=== PATIENT | female | born 1990 | race Caucasian/White ===

== ENCOUNTER → 2017-02-10 | Outpatient (CLI) | payer OTHER | LOC: RAD 13:35 | DX: M54.2 Cervicalgia (principal); M54.6 Pain in thoracic spine | CPT/HCPCS: 72050; 72072 ==

== ENCOUNTER 2017-03-04 17:31 | Emergency (ER) | payer OTHER ==
[2017-03-04 19:11] LABS: HEMOGLOBIN 13.1 gm/dl (12.3-15.3); RED BLOOD COUNT 4.41 M/UL (4.00-5.10); WHITE BLOOD COUNT 7.9 K/UL (4.5-11.0)
[2017-03-04 19:26] LABS: BUN/CREATININE RATIO 9 (0-10)
== END 2017-03-04 20:52 | disposition home or self-care (01) ==
LOC: ER1 17:31
PROVIDERS: Family Medicine
DX: R10.11 Right upper quadrant pain (principal); R11.10 Vomiting, unspecified; F17.200 Nicotine dependence, unspecified, uncomplicated
CPT/HCPCS: 36415; 80053; 81001; 83690; 84703; 85025; 96374; 96375; 99284; J2270; J2405; J7030; J7050; Q9962

== ENCOUNTER → 2017-03-18 | Outpatient (CLI) | payer OTHER | LOC: KOH-I 03-16 08:00 | DX: R10.9 Unspecified abdominal pain (principal); R16.0 Hepatomegaly, not elsewhere classified | CPT/HCPCS: 76705 ==

== ENCOUNTER 2020-10-13 12:05 | Emergency (ER) | payer OTHER ==
[~2020-10-13 12:05] MED LIST: IBUPROFEN600 MG PO; ZOFRAN4 MG PO
[2020-10-13] MEDS ORDERED: AUGMENTIN 875-1 EACH PO (13:39)
== END 2020-10-13 15:57 | disposition home or self-care (01) ==
LOC: ER1 12:05
DX: S61.451A Open bite of right hand, initial encounter (principal); F17.200 Nicotine dependence, unspecified, uncomplicated; Z23 Encounter for immunization; W54.0XXA Bitten by dog, initial encounter; Y92.009 Unspecified place in unspecified non-institutional (private) residence as the place of occurrence of the external cause
CPT/HCPCS: 73130; 90471; 90715; 99283

== ENCOUNTER 2021-04-16 12:19 | Emergency (ER) | payer OTHER ==
[~2021-04-16 12:19] MED LIST changes: +AUGMENTIN 875-1 EACH PO
== END 2021-04-16 14:33 | disposition home or self-care (01) ==
LOC: ER1 12:19
DX: S49.91XA Unspecified injury of right shoulder and upper arm, initial encounter (principal); F17.200 Nicotine dependence, unspecified, uncomplicated; E07.9 Disorder of thyroid, unspecified; Z90.89 Acquired absence of other organs; W19.XXXA Unspecified fall, initial encounter
CPT/HCPCS: 73030; 99283

== ENCOUNTER → 2021-04-29 | Outpatient (CLI) | payer OTHER | LOC: KOH-I 15:15 | DX: M25.511 Pain in right shoulder (principal); Z91.81 History of falling; M71.9 Bursopathy, unspecified | CPT/HCPCS: 73218 ==

== ENCOUNTER 2022-01-28 13:54 | Emergency (ER) | payer OTHER | END 2022-01-28 15:00 | disposition home or self-care (01) | LOC: ER1 13:54 | DX: G89.29 Other chronic pain (principal); M54.50 Low back pain, unspecified; I10 Essential (primary) hypertension; F17.210 Nicotine dependence, cigarettes, uncomplicated; X50.9XXA Other and unspecified overexertion or strenuous movements or postures, initial encounter | CPT/HCPCS: 96372; 99283; J1100; J1885 ==

== ENCOUNTER 2022-02-18 11:04 | Emergency (ER) | payer OTHER ==
[2022-02-18 11:54] LABS: HEMOGLOBIN 13.7 gm/dl (12.3-15.3); RED BLOOD COUNT 4.4 M/UL (4.00-5.10); WHITE BLOOD COUNT 7.2 K/UL (4.5-11.0)
[2022-02-18 12:33] LABS: BUN/CREATININE RATIO 16 (0-10)
== END 2022-02-18 15:55 | disposition home or self-care (01) ==
LOC: ER1 11:04
PROVIDERS: Physician Assistant Medical
DX: R07.9 Chest pain, unspecified (principal); I10 Essential (primary) hypertension; F17.210 Nicotine dependence, cigarettes, uncomplicated
CPT/HCPCS: 71045; 80053; 82550; 82553; 84439; 84443; 84484; 85025; 85379; 93005; 99285

== ENCOUNTER 2022-03-04 12:51 | Emergency (ER) | payer SELFPAY ==
[2022-03-04] MEDS ORDERED: IBU600 MG PO (13:16)
== END 2022-03-04 13:27 | disposition home or self-care (01) ==
LOC: ER1 12:51
DX: S63.501A Unspecified sprain of right wrist, initial encounter (principal); I10 Essential (primary) hypertension; F17.200 Nicotine dependence, unspecified, uncomplicated; Z85.850 Personal history of malignant neoplasm of thyroid; Z90.49 Acquired absence of other specified parts of digestive tract; Z90.89 Acquired absence of other organs; W22.8XXA Striking against or struck by other objects, initial encounter; X50.1XXA Overexertion from prolonged static or awkward postures, initial encounter
CPT/HCPCS: 99283

== ENCOUNTER → 2022-03-09 | Outpatient (CLI) | payer OTHER ==
[~2022-03-09] MED LIST changes: +IBU600 MG PO
== END ==
LOC: KOH-I 08:45
DX: M25.531 Pain in right wrist (principal)
CPT/HCPCS: 73110

== ENCOUNTER 2022-03-21 13:19 | Emergency (ER) | payer OTHER ==
[2022-03-21] MEDS ORDERED: CYCLOBENZAPRINE10 MG PO (17:50)
[2022-03-21] MEDS ORDERED: MEDROL DOSEPAK 24 MG PO (17:50)
== END 2022-03-21 17:59 | disposition home or self-care (01) ==
LOC: ER1 13:19
DX: M54.41 Lumbago with sciatica, right side (principal); M54.42 Lumbago with sciatica, left side; G89.29 Other chronic pain; I10 Essential (primary) hypertension; F17.210 Nicotine dependence, cigarettes, uncomplicated
CPT/HCPCS: 72131; 96372; 99284; J1100; J1885

== ENCOUNTER → 2022-06-16 | Outpatient (CLI) | payer OTHER ==
[~2022-06-16] MED LIST changes: +CYCLOBENZAPRINE10 MG PO; +MEDROL DOSEPAK 24 MG PO
== END ==
LOC: KOH-I 11:58
DX: M47.26 Other spondylosis with radiculopathy, lumbar region (principal); M47.817 Spondylosis without myelopathy or radiculopathy, lumbosacral region
CPT/HCPCS: 72100